=== PATIENT | female | born 1965 | race Caucasian/White ===

== ENCOUNTER 2016-11-06 12:54 | Emergency (ER) | payer SELFPAY ==
[2016-11-06] MEDS ORDERED: CLONIDINE HCL 0.1 MG TABLET PO ONE (13:53)
[2016-11-06] MEDS ORDERED: DICYCLOMINE HCL 20 MG TABLET PO ONE (13:54)
[2016-11-06] MEDS ORDERED: PROMETHAZINE HCL 25 MG TABLET PO ONE (13:56)
--- NOTE | 2016-11-06 14:01 | ER Document Report ---
ED Medical Screen (RME) - General Chief Complaint: Other Stated Complaint: POSSIBLE WITHDRAWAL Time Seen by Provider: 11/06/16 13:53 Mode of Arrival: Ambulatory Information source: Patient Notes: This is a 51-year-old female that presents to the emergency room with acute opiate withdrawal. Patient has chronic pain and has been on oxycodone for the past year and wanted to come off and stopped abruptly 2 days ago. She is followed in the [facility] and had presented to the clinic asking for any medication helped get her off the oxycodone and they referred her to the ER. She states she feels anxious, abdominal cramping, nausea, decreased by mouth intake. - HPI Onset: Yesterday Onset/Duration: Gradual Quality of pain: Dull Severity: Moderate Pain Level: 2 Associated Symptoms: Chills, Diarrhea, Nausea. denies: Fever, Shortness of breath, Vomiting Exacerbated by: Denies Relieved by: Denies Similar symptoms previously: No Recently seen / treated by doctor: No - Related Data Smoking: Cigarettes Frequency of alcohol use: None Drug Abuse: None Allergies/Adverse Reactions: acetaminophen [From Tylenol-Codeine] Allergy (Verified 11/06/16 13:36) Difficulty breathing codeine [From Tylenol-Codeine] Allergy (Verified 11/06/16 13:36) Difficulty breathing Past Medical History - General Information source: Patient - Social History Cigarette use (# per day): Yes - 1 pack per day Chew tobacco use (# tins/day): No Frequency of alcohol use: None Drug Abuse: None Lives with: Family Family history: Reviewed & Not Pertinent - Past Medical History Cardiac Medical History: Reports: None Renal/ Medical History: Denies: Hx Peritoneal Dialysis Musculoskeltal Medical History: Reports Hx Arthritis, Reports Other - Chronic pain Skin Medical History: Reports None Psychiatric Medical History: Reports: Hx Anxiety Traumatic Medical History: Reports: None Infectious Medical History: Reports: None Surgical Hx: Other - Noncontributory Review of Systems - Review of Systems Constitutional: Chills, Diaphoresis. denies: Fever EENT: No symptoms reported Cardiovascular: No symptoms reported Respiratory: No symptoms reported Gastrointestinal: No symptoms reported Genitourinary: No symptoms reported Female Genitourinary: No symptoms reported Musculoskeletal: See HPI Skin: No symptoms reported Hematologic/Lymphatic: No symptoms reported Neurological/Psychological: No symptoms reported Physical Exam - Vital signs Vitals: Temp Pulse Resp BP Pulse Ox 98.8 F 106 H 18 126/76 H 99 11/06/16 13:08 11/06/16 13:08 11/06/16 13:08 11/06/16 13:08 11/06/16 13:08 Notes: Physical exam: GENERAL: 51-year-old female, alert and oriented 3, no acute distress. The patient does look tired and fatigued. She states that she feels like she is "crawling out of her skin". HEAD: Atraumatic, normocephalic. EYES: Pupils equal round and reactive to light, extraocular movements intact, sclera anicteric, conjunctiva are normal. ENT: TMs normal, nares patent, oropharynx clear without exudates. Moist mucous membranes. NECK: Normal range of motion, supple without lymphadenopathy or JVD. LUNGS: Breath sounds clear to auscultation bilaterally and equal. No wheezes rales or rhonchi. HEART: Regular rate and rhythm without murmurs, rubs or gallops. ABDOMEN: Soft, normoactive bowel sounds. No tenderness to palpation. No guarding, no rebound. No masses appreciated. EXTREMITIES: Normal range of motion, no pitting or edema. No clubbing or cyanosis. NEUROLOGICAL: Cranial nerves II through XII grossly intact. Normal speech, normal gait. PSYCH: Normal mood, normal affect. SKIN: Warm, Dry, normal turgor, no rashes or lesions noted. Course - Vital Signs Vital signs: Temp Pulse Resp BP Pulse Ox 98.4 F 72 16 111/72 99 11/06/16 14:10 11/06/16 14:10 11/06/16 14:10 11/06/16 14:10 11/06/16 14:10 Doctor's Discharge - Discharge Clinical Impression: opiate withdrawal Condition: Stable Disposition: HOME, SELF-CARE Additional Instructions: Recommendations: The medicines below cannot take away the withdrawal symptoms completely, but they will help with the symptoms. Clonidine: 0.1 mg every 8 as needed (this is a Gen. medicine for blood pressure but will help with opiate withdrawal symptoms). bentyl: 20 mg every 6 hours as needed (this helps with the spasms) Phenergan: 25 mg every 8 hours for nausea (this will help with the nausea). Return to the emergency room for any worsening symptoms. Follow-up with your pain medicine doctor: As the withdrawal symptoms start to get better (and they will), you still have the pain issue. So it's important to follow-up with the pain specialists for nonnarcotic approach to the pain control. Prescriptions: Clonidine HCl 0.1 mg PO Q8HP PRN #25 tablet PRN Reason: Dicyclomine HCl [Bentyl 20 mg Tablet] 20 mg PO QID #30 tablet Promethazine HCl [Phenergan 25 mg Tablet] 25 mg PO Q6H PRN #15 tablet PRN Reason:
[2016-11-06 14:15] VITALS: BP 111/72
== END 2016-11-06 14:10 | disposition home or self-care (01) ==
LOC: ER 12:54
DX: F11.23 Opioid dependence with withdrawal (principal); R68.83 Chills (without fever); R61 Generalized hyperhidrosis; G89.29 Other chronic pain; F41.9 Anxiety disorder, unspecified; R10.9 Unspecified abdominal pain; R11.0 Nausea; F17.200 Nicotine dependence, unspecified, uncomplicated; Z88.6 Allergy status to analgesic agent
CPT/HCPCS: 99283; J3490

== ENCOUNTER 2016-11-17 10:07 | Emergency (ER) | payer SELFPAY ==
[2016-11-17] MEDS ORDERED: ASPIRIN 81 MG TABLET, CHEWABLE PO ONE (10:38)
--- NOTE | 2016-11-17 10:43 | ER Document Report ---
ED Medical Screen (RME) - General Chief Complaint: Chest Pain Stated Complaint: PALPITATIONS,DIFFICULTY BREATHING Time Seen by Provider: 11/17/16 10:31 Notes: Patient is a 51-year-old female presents emergency department complaining of palpitations, chest pain and pain radiating down her left arm. Patient was recently seen here for acute opiate withdrawal, discharged home and told to follow-up [facility]. Patient states that she has been having chest pains on and off for the past 2 weeks with associated palpitations radiating into her left arm. She denies any history of hypertension, hyperlipidemia, diabetes. Patient is a smoker. Denies any history of heart attack, stress test or cath. I have greeted and performed a rapid initial assessment of this patient. A comprehensive ED assessment and evaluation of the patient, analysis of test results and completion of the medical decision making process will be conducted by additional ED providers. TRAVEL OUTSIDE OF THE [place] IN LAST 30 DAYS: No - Related Data Allergies/Adverse Reactions: acetaminophen [From Tylenol-Codeine] Allergy (Verified 11/17/16 10:21) Difficulty breathing codeine [From Tylenol-Codeine] Allergy (Verified 11/17/16 10:21) Difficulty breathing Past Medical History - Social History Family history: Reviewed & Not Pertinent Renal/ Medical History: Denies: Hx Peritoneal Dialysis Musculoskeltal Medical History: Reports Hx Arthritis Psychiatric Medical History: Reports: Hx Anxiety Physical Exam - Vital signs Vitals: Temp Pulse Resp BP Pulse Ox 98.4 F 121 H 20 126/74 H 98 11/17/16 10:19 11/17/16 10:19 11/17/16 10:11/17/16 10:11/17/16 10:19 - General General appearance: Appears well, Alert In distress: None - Respiratory Respiratory status: No respiratory distress Chest status: Nontender Breath sounds: Normal Chest palpation: Normal - Cardiovascular Rhythm: Tachycardia Heart sounds: Normal auscultation Murmur: No Pulses: Normal: Radial Normal capillary refill: Yes Course - Vital Signs Vital signs: Temp Pulse Resp BP Pulse Ox 98.4 F 121 H 20 126/74 H 98 11/17/16 10:19 11/17/16 10:19 11/17/16 10:19 11/17/16 10:19 11/17/16 10:19
[2016-11-17 11:26] LABS: APPEARANCE,URINE SLIGHTLY-CLOUDY; BILIRUBIN,URINE NEGATIVE (NEGATIVE); GLUCOSE, URINE NEGATIVE (NEGATIVE); KETONES,URINE NEGATIVE (NEGATIVE); LEUKOCYTE ESTERASE,URINE NEGATIVE (NEGATIVE); NITRITE,URINE NEGATIVE (NEGATIVE); PROTEIN,URINE NEGATIVE (NEGATIVE); URINE SPECIFIC GRAVITY 1.015; UROBILINOGEN,URINE NEGATIVE mg/dL (<2.0)
--- NOTE | 2016-11-17 11:46 | ER Document Report ---
ED General - General Mode of Arrival: Ambulatory Information source: Patient TRAVEL OUTSIDE OF THE [place] IN LAST 30 DAYS: No - HPI Patient complains to provider of: Chest Pain Onset: Other - ~4 weeks ago Onset/Duration: Gradual, Worse Associated symptoms: Chest pain, Diarrhea, Other - See Narrative <EMILY MAXWELL - Last Filed: 11/17/16 12:37> <BERNARDA SINGH - Last Filed: 11/17/16 19:52> - General Chief Complaint: Chest Pain Stated Complaint: PALPITATIONS,DIFFICULTY BREATHING Time Seen by Provider: 11/17/16 10:31 Notes: Patient is a 51-year-old female presenting to the emergency department with concerns of chest pain which radiates into her left arm onset approximately 4 weeks ago, but progressively worsening. Patient also states that she recently came off Oxycodone due to loss of insurance, which she was using to treat her chronic back pain. Since then, patient admits to increased back pain, sleeping difficulty, anxiety, nausea (now improved), diarrhea, heart racing, palpitations , and left-sided numbness. Patient also states that she takes Celexa and Xanax , her last Xanax she took was a quarter of a pill last night. Patient denies any improvement of her symptoms with this dose of Xanax. Patient states she takes the Celexa daily. Patient was seen here in the emergency department on November [address] Carlin for similar symptoms, patient was sent home with Phenergan, clonidine, and dicyclomine. Patient states these medications have not helped very much. (EMILY MAXWELL) - Related Data Allergies/Adverse Reactions: acetaminophen [From Tylenol-Codeine] Allergy (Verified 11/17/16 10:21) Difficulty breathing codeine [From Tylenol-Codeine] Allergy (Verified 11/17/16 10:21) Difficulty breathing latex Allergy (Verified 11/17/16 11:17) lidocaine Allergy (Verified 11/17/16 11:17) Past Medical History - General Information source: Patient - Social History Smoking Status: Current Every Day Smoker Cigarette use (# per day): Yes - 20 Chew tobacco use (# tins/day): No Frequency of alcohol use: None Drug Abuse: None Family History: Reviewed & Not Pertinent, CAD - Father Patient has suicidal ideation: No Patient has homicidal ideation: No Renal/ Medical History: Denies: Hx Peritoneal Dialysis Musculoskeltal Medical History: Reports Hx Arthritis Psychiatric Medical History: Reports: Hx Anxiety <EMILY MAXWELL - Last Filed: 11/17/16 12:37> Review of Systems - Review of Systems Constitutional: No symptoms reported EENT: No symptoms reported Cardiovascular: See HPI, Chest pain - radiating into left arm, Palpitations, Heart racing Respiratory: No symptoms reported Gastrointestinal: See HPI, Diarrhea. denies: Nausea Genitourinary: No symptoms reported Female Genitourinary: No symptoms reported Musculoskeletal: See HPI, Back pain Skin: No symptoms reported Hematologic/Lymphatic: No symptoms reported Neurological/Psychological: See HPI, Numbness - Left sided numbness -: Yes All other systems reviewed and negative <EMILY MAXWELL - Last Filed: 11/17/16 12:37> Physical Exam <EMILY MAXWELL - Last Filed: 11/17/16 12:37> <BERNARDA SINGH - Last Filed: 11/17/16 19:52> - Vital signs Vitals: Temp Pulse Resp BP Pulse Ox 98.4 F 121 H 20 126/74 H 98 11/17/16 10:19 11/17/16 10:19 11/17/16 10:19 11/17/16 10:19 11/17/16 10:19 - Notes Notes: GENERAL: Alert, interacts well. No acute distress. HEAD: Normocephalic, atraumatic. EYES: Pupils equal, round, and reactive to light. Extraocular movements intact. ENT: Oral mucosa moist, tongue midline. NECK: Full range of motion. Supple. Trachea midline. LUNGS: Clear to auscultation bilaterally, no wheezes, rales, or rhonchi. No respiratory distress. HEART: Mild tachycardia, regular rhythm. No murmurs, gallops, or rubs. ABDOMEN: Soft, non-tender. Non-distended. Bowel sounds present in all 4 quadrants. EXTREMITIES: Moves all 4 extremities spontaneously. No edema, radial and dorsalis pedis pulses 2/4 bilaterally. No cyanosis. NEUROLOGICAL: Alert and oriented x3. Normal speech. Biceps and patellar DTRs 2+ bilaterally. PSYCH: Normal affect, normal mood. SKIN: Warm, dry, normal turgor. No rashes or lesions noted. (EMILY MAXWELL) Course - Laboratory Result Diagrams: 11/17/16 11:30 11/17/16 11:30 <EMILY MAXWELL - Last Filed: 11/17/16 12:37> - Laboratory Result Diagrams: 11/17/16 11:30 11/17/16 11:30 <BERNARDA SINGH - Last Filed: 11/17/16 19:52> - Re-evaluation Re-evalutation: 11/17/16 14:32 CBC unremarkable, CMP grossly unremarkable, urinalysis unremarkable, chest x- ray shows no acute process. EKG shows sinus tachycardia at a rate of 125, no ST segment elevations or depressions, no T-wave inversions, there is nonspecific T-wave flattening noted in lead III and aVF per my interpretation. Patient last used narcotics 4 weeks ago, tachycardia and diarrhea will not be caused by narcotic withdrawal as she has not had a dose in 4 weeks and the physiologic effects of withdrawal should be gone by now. I am concerned given her chest pain and her tachycardia for possible acute coronary syndrome or pulmonary embolism, initial set of cardiac enzymes negative, repeat set will be ordered. CT angiogram of the chest will be ordered as well to rule out pulmonary embolism. Patient is being hydrated as well for the tachycardia. 11/17/16 16:46 Second set of cardiac enzymes are negative, thyroid functions are normal. After a liter of normal saline patient's heart rate has normalized. Patient is no longer having chest pain, no longer having pressure, no longer having tachycardia. Discussed with patient my concerns for possible pulmonary embolism and that I would ideally like a CT angiogram of the chest however she states she has to go because her daughter has to get her dose of dobutamine. Discussed with patient that as her vitals have normalized and her chest pain has gone away and I am agreeable to canceling the CT angiogram of the chest for now however she may return at any time should her chest pain return or her racing heartbeat return and had a CT angiogram performed on to look for pulmonary embolism. 11/17/16 16:48 Heart rate is currently sinus rhythm at a rate of 95 on the monitor. (BERNARDA SINGH) - Vital Signs Vital signs: Temp Pulse Resp BP Pulse Ox 98.6 F 121 H 20 137/82 H 98 11/17/16 16:47 11/17/16 10:19 11/17/16 16:47 11/17/16 16:47 11/17/16 16:47 - Laboratory Laboratory results interpreted by me: 11/17/16 11/17/16 11:30 11:30 RDW 14.1 H Sodium 145.1 H Chloride 108 H - EKG Interpretation by Me Additional EKG results interpreted by me: 11/17/16 16:48 EKG shows sinus tachycardia at a rate of 125, T-wave flattening in leads III and aVF, no ST segment elevations or depressions, no T-wave inversions per my interpretation. Repeat EKG at 1457 showed sinus tachycardia at a rate of 105, persistent T-wave flattening in lead III, T-wave flattening has resolved and aVF, no ST segment elevations or depressions, no T-wave inversions, no significant change from prior EKG except her rate has slowed per my interpretation. (BERNARDA SINGH) Discharge <EMILY MAXWELL - Last Filed: 11/17/16 12:37> <BERNARDA SINGH - Last Filed: 11/17/16 19:52> - Discharge Clinical Impression: Chest pain of uncertain etiology, Tachycardia Diarrhea Qualifiers: Diarrhea type: unspecified type Qualified Code(s): R19.7 - Diarrhea, unspecified Condition: Stable Disposition: HOME, SELF-CARE Additional Instructions: You may try using Imodium as directed on the box for your diarrhea. Should you develop further chest pain or heart racing sensation I would like you to return to the emergency department for a CAT scan of your chest to look for pulmonary embolism (blood clot). Today you have left without this test and your daughter needs her medications. Since your heart rate normalized after hydration you are lower risk for a blood clot however it is still a possibility. Please return at any time to complete your workup. Scribe Attestation: 11/17/16 19:52 I personally performed the services described in the documentation, reviewed and edited the documentation which was dictated to the scribe in my presence, and it accurately records my words and actions. (BERNARDA SINGH) Scribe Documentation - Scribe Written by Demario:: Demario Riley, 11/17/2016 1145 acting as scribe for :: Vanessa <EMILY MAXWELL - Last Filed: 11/17/16 12:37>
[2016-11-17] MEDS ORDERED: NORMAL SALINE 1000 ML 1,000 ML IV ONE (11:47)
[2016-11-17 11:48] LABS: ABSOLUTE EOSINOPHILS # (AUTO) 0.1 10^3/uL (0.0-0.6); ABSOLUTE LYMPHOCYTES (AUTO) 1.7 10^3/uL (0.5-4.7); ABSOLUTE MONOCYTES (AUTO) 0.5 10^3/uL (0.1-1.4); ABSOLUTE NEUT (AUTO) 7.3 10^3/uL (1.7-8.2); BASOPHILS % (AUTO) 0.4 % (0-2); EOSINOPHILS % (AUTO) 0.9 % (0-6); HEMATOCRIT 45.5 % (36.0-47.0); HEMOGLOBIN 15.2 g/dL (12.0-15.5); HGB HCT DIFFERENCE 0.1; LYMPHOCYTES % (AUTO) 17.7 % (13-45); MEAN CORPUSCULAR HEMOGLOBIN 29.1 pg (27.0-33.4); MEAN CORPUSCULAR HGB CONC 33.5 g/dL (32.0-36.0); MEAN CORPUSCULAR VOLUME 87 fl (80-97); MONOCYTES % (AUTO) 4.9 % (3-13); RED BLOOD COUNT 5.23 10^6/uL (3.72-5.28); RED CELL DISTRIBUTION WIDTH 14.1 % (11.5-14.0); SEGMENTED NEUTROPHILS % (AUTO) 76.1 % (42-78); WHITE BLOOD COUNT 9.6 10^3/uL (4.0-10.5)
[2016-11-17 12:06] LABS: ALANINE AMINOTRANSFERASE 27 U/L (9-52); ALBUMIN 4.6 g/dL (3.5-5.0); ALKALINE PHOSPHATASE 95 U/L (38-126); ANION GAP 14 (5-19); ASPARTATE AMINO TRANSFERASE 18 U/L (14-36); BILIRUBIN,DIRECT 0.3 mg/dL (0.0-0.4); BILIRUBIN,TOTAL 0.5 mg/dL (0.2-1.3); BLOOD UREA NITROGEN 12 mg/dL (7-20); CALCIUM 10.1 mg/dL (8.4-10.2); CARBON DIOXIDE 23 mmol/L (22-30); CHLORIDE 108 mmol/L (98-107); CREATINE KINASE 39 U/L (30-135); CREATININE RESULT 0.58 mg/dL (0.52-1.25); GLUCOSE 100 mg/dL (75-110); POTASSIUM 4.4 mmol/L (3.6-5.0); SODIUM 145.1 mmol/L (137-145); TOTAL PROTEIN 7.6 g/dL (6.3-8.2)
[2016-11-17 12:32] LABS: CREATINE KINASE MB < 0.22 ng/mL (<4.55); TROPONIN I < 0.012 ng/mL
[2016-11-17 15:40] LABS: FREE T3 4.47 pg/mL (2.77-5.27)
[2016-11-17 15:53] LABS: THYROID STIMULATING HORMONE 0.88 uIU/mL (0.47-4.68)
[2016-11-17 17:29] VITALS: BP 137/82
--- NOTE | 2016-11-17 17:42 | EKG REPORT ---
SEVERITY:- OTHERWISE NORMAL ECG - SINUS TACHYCARDIA : Confirmed by: Amarilis Vital MD 17-Nov-2016 17:42:00
--- NOTE | 2016-11-17 17:43 | EKG REPORT ---
SEVERITY:- BORDERLINE ECG - SINUS TACHYCARDIA BORDERLINE T ABNORMALITIES, INFERIOR LEADS : Confirmed by: Amarilis Vital MD 17-Nov-2016 17:42:21
== END 2016-11-17 17:25 | disposition home or self-care (01) ==
LOC: ER 10:07
DX: R07.9 Chest pain, unspecified (principal); R00.2 Palpitations; R19.7 Diarrhea, unspecified; M54.9 Dorsalgia, unspecified; F41.9 Anxiety disorder, unspecified; R11.0 Nausea; R00.0 Tachycardia, unspecified; R20.0 Anesthesia of skin; F17.210 Nicotine dependence, cigarettes, uncomplicated; Z79.899 Other long term (current) drug therapy; Z88.6 Allergy status to analgesic agent; Z88.5 Allergy status to narcotic agent; Z91.040 Latex allergy status; Z98.84 Bariatric surgery status
CPT/HCPCS: 93005; 99285; 96360; 36415; 84439; 82553; 82550; 84443; 85025; 80053; 81001; 84484; 84481; 71010; 93010; J7030